=== PATIENT | male | born 2000 | race Caucasian/White ===

== ENCOUNTER 2020-09-24 01:43 | Emergency (ER) | payer OTHER, SELFPAY ==
--- NOTE | 2020-09-24 01:48 | ED.ALCOHOL ---
HPI - Alcohol General Chief Complaint: ETOH/Substance Use Stated Complaint: ETOH Time Seen by Provider: 09/24/20 01:48 Source: EMS Mode of arrival: EMS History of Present Illness HPI narrative: 20-year-old male brought in by EMS after they found the patient in a friend's driveway with suspected alcohol intoxication. Otherwise, patient nonverbal at present. Related Data Allergies Allergy/AdvReac Type Severity Reaction Status Date / Time Unable to Assess Allergy Unverified 09/24/20 02:04 Review of Systems Review of Systems: Yes Unobtainable due to mental status PMFSH Past Medical History Source: nursing notes reviewed Social History Social History Advance Directives: No Advance Directives Information Provided: No Physical Exam Vital Signs: Vital Signs: Last Vital Signs Temp 98 F 09/24/20 01:53 Pulse 74 09/24/20 02:13 Resp 16 09/24/20 02:13 BP 106/46 L 09/24/20 02:13 Pulse Ox 97 09/24/20 02:13 Body Mass Index 31.6 VITAL SIGNS: Reviewed. GENERAL: Well developed, well nourished, in no acute distress. HEAD: Normocephalic/abrasions noted to left forehead and left cheek EYES: PERRLA, EOMI OROPHARYNX: no oral lesions noted, posterior pharynx clear NECK: Supple, no adenopathy LUNGS: Normal breath sounds. SpO2<98> CARDIOVASCULAR: Regular rate and rhythm without noted murmurs ABDOMEN: Soft, non-tender, non-distended with bowel sounds. SKIN: Inspection of the skin reveals no rashes, ulcerations, jaundice, pallor, or petechiae. NEUROLOGIC: Intoxicated, Strength and sensation grossly intact x 4. Course Course Course Narrative: This is a 20-year-old male with history and clinical presentation consistent with significant alcohol intoxication and currently remains lethargic and difficult to arouse, but otherwise protecting airway. Review of all investigations negative for any acute findings other than [id number]. Patient was noted to be standing at the edge of the gurney and urinating on the floor. However, otherwise remaining nonverbal. Signed out to Dr Finley: Re-eval and MTF. MDM - Alcohol Lab Data Result diagrams: 09/24/20 02:10 09/24/20 02:10 Labs: Lab Results 09/24/20 09/24/20 09/24/20 Range/Units 02:10 02:10 02:10 WBC 8.4 (4.8-10.8) X10*3/uL RBC 4.93 (4.60-5.80) X10*6/uL Hgb 15.2 (14.0-18.0) g/dl Hct 43.5 (42-52) % MCV 88.2 (80-98) fL MCH 30.8 (27.0-33.0) pg MCHC 34.9 (31.0-36.0) g/dl RDW 12.1 (11.0-16.0) % Plt Count 230 (160-400) X10*3/uL MPV 8.3 L (9.4-12.4) fL Immature Gran % (Auto) 0.2 (0.0-0.4) % Neut % (Auto) 68.2 (45-73) % Lymph % (Auto) 24.3 (20-40) % [place] % (Auto) 6.2 (2-11) % Eos % (Auto) 0.6 (0-4) % Baso % (Auto) 0.5 (0-2) % Lymph # (Auto) 2.0 (1.2-4.9) X10*3/uL [place] # (Auto) 0.5 (0.1-1.2) X10*3/uL Eos # (Auto) 0.1 (0.0-0.4) X10*3/uL Baso # (Auto) 0.0 (0.0-0.2) X10*3/uL Abs Immat Gran (auto) 0.02 (0.00-0.03) X10*3/uL Absolute Neuts (auto) 5.7 (2.0-8.3) X10*3/uL Absolute Nucleated RBC 0.000 (0.0-0.012) X10*3/uL Nucleated RBC % (auto) 0.0 (0.0-0.2) /100WBC Sodium 136 (135-145) mmol/L Potassium 3.2 L (3.3-5.1) mmol/L Chloride 101 (96-108) mmol/L Carbon Dioxide 22 (22-29) mmol/L Anion Gap 16 (12-20) BUN 11 (9-16) mg/dL Creatinine 0.74 (0.5-1.4) mg/dL Estim Creat Clear Calc 187.1 Estimated GFR > 60 Random Glucose 105 (60-115) mg/dL Calcium 8.3 L (8.4-10.2) mg/dL Total Bilirubin 0.5 (0.0-1.0) mg/dL AST 25 (5-37) U/L ALT 27 (0-40) U/L Alkaline Phosphatase 38 L (39-117) U/L Total Protein 6.8 (6.5-8.0) g/dL Albumin 4.5 (3.5-5.0) g/dL Ethyl Alcohol 398 H* mg/dL
[2020-09-24 01:53] VITALS: BP 104/55; BP 107/45; PULSE 78; PULSE 79; RESP 16; TEMP 36.6; O2SAT 97; O2SAT 98; BMI 31.6
--- NOTE | 2020-09-24 02:00 | PC.NURSE ---
PT TO ROOM VIA AMBULANCE WITH ETOH INTOXICATION. PT ARRIVES SLEEPING, OPENS EYES AND FALLS BACK TO SLEEP. PT ALERT, RESPIRATIONS EASY, N/L. SKIN W/D.
[2020-09-24 02:13] VITALS: BP 106/46; PULSE 74; RESP 16; O2SAT 97
[2020-09-24 02:15] LABS: MANUAL DIFF FLAG NO
[2020-09-24 02:16] LABS: Basophils Percent Auto 0.5 % (0-2); Eosinophils Absolute Auto 0.1 X10*3/uL (0.0-0.4); Eosinophils Percent Auto 0.6 % (0-4); Hematocrit 43.5 % (42-52); Hemoglobin 15.2 g/dl (14.0-18.0); Imm Gran Abs Auto 0.02 X10*3/uL (0.00-0.03); Imm Gran Pct Auto 0.2 % (0.0-0.4); Lymphocytes Percent Auto 24.3 % (20-40); Mean Corpuscular HGB Conc 34.9 g/dl (31.0-36.0); Mean Corpuscular Hemoglobin 30.8 pg (27.0-33.0); Mean Corpuscular Volume 88.2 fL (80-98); Mean Platelet Volume 8.3 fL (9.4-12.4); Monocytes Absolute Auto 0.5 X10*3/uL (0.1-1.2); Monocytes Percent Auto 6.2 % (2-11); Neutrophils Absolute Auto 5.7 X10*3/uL (2.0-8.3); Neutrophils Percent Auto 68.2 % (45-73); Platelet Count 230 X10*3/uL (160-400); Red Blood Count 4.93 X10*6/uL (4.60-5.80); Red Cell Distribution Width 12.1 % (11.0-16.0); White Blood Count 8.4 X10*3/uL (4.8-10.8)
[2020-09-24 02:35] LABS: Ethanol 398 mg/dL
[2020-09-24 02:39] LABS: Alanine Aminotransferase 27 U/L (0-40); Albumin Level 4.5 g/dL (3.5-5.0); Alkaline Phosphatase 38 U/L (39-117); Anion Gap 16 (12-20); Aspartate Amino Transferase 25 U/L (5-37); Bilirubin Total 0.5 mg/dL (0.0-1.0); Blood Urea Nitrogen 11 mg/dL (9-16); Calcium 8.3 mg/dL (8.4-10.2); Carbon Dioxide 22 mmol/L (22-29); Chloride 101 mmol/L (96-108); Creatinine Clr Calc Pharmacy 187.1; Estimated Glomerular Filt Rate > 60; Glucose Random 105 mg/dL (60-115); Potassium 3.2 mmol/L (3.3-5.1); Sodium 136 mmol/L (135-145); Total Protein 6.8 g/dL (6.5-8.0)
--- NOTE | 2020-09-24 03:00 | PC.NURSE ---
IV PLACED NS X 2L UP AND RUNNING W/O SITE INTACT. PT SLEEPING WAKES TO VOICE AND FALLS BACK TO SLEEP. WILL CONTINUE TO MONITOR PT.,
[2020-09-24] MEDS: 0.9 % Sodium Chloride 2,000 ML 999 ML IV (03:48)
--- NOTE | 2020-09-24 04:35 | PC.NURSE ---
NS CONTINUES TO RUN, SITE INTACT. PT WAKES TO VOICE. PT IN NAD. WILL CONTINUE TO MONITOR PT.
--- NOTE | 2020-09-24 06:35 | PC.NURSE ---
IN ROOM FOR RE-EVAL.
--- NOTE | 2020-09-24 06:52 | PC.NURSE ---
REPORT TO LUCIEN NUNEZ
--- NOTE | 2020-09-24 08:26 | PC.NURSE ---
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 Pt sleeping soundly.
--- NOTE | 2020-09-24 08:57 | PC.NURSE ---
pt is awake, oriented and ambulatory to bathroom. Mother at bedside to take pt home.
[2020-09-24 09:27] VITALS: BP 121/90; PULSE 79; RESP 16; TEMP 36.9; O2SAT 98
--- NOTE | 2020-09-24 09:28 | PC.NURSE ---
pt ambulatory with steady gait to chair, mother states she is taking pt home. Pt discharged in no distress.
== END 2020-09-24 09:29 | disposition home or self-care (01) ==
PROVIDERS: Student in an Organized Health Care Education/Training Program; Emergency Provider Emergency Medicine Emergency Medical Services
DX: F10.920 Alcohol use, unspecified with intoxication, uncomplicated (principal); Y90.8 Blood alcohol level of 240 mg/100 ml or more
CPT/HCPCS: 36415; 80053; 80320; 85025; 96360; 99284